=== PATIENT | male | born 1975 | race Caucasian/White ===

== ENCOUNTER → 2017-04-25 | Outpatient (CLI) | payer BC | LOC: COL.RAD 09:36 | DX: K42.9 Umbilical hernia without obstruction or gangrene (principal) ==

== ENCOUNTER → 2017-05-09 | Outpatient (CLI) | payer BC | LOC: COL.RAD 09:56 | DX: E23.0 Hypopituitarism (principal) | CPT/HCPCS: A9585 ==

== ENCOUNTER → 2022-08-12 | Outpatient (CLI) | payer BC | LOC: COL.RAD 10:21 | DX: N50.89 Other specified disorders of the male genital organs (principal) ==